=== PATIENT | female | born 1955 | race Caucasian/White ===

== ENCOUNTER → 2016-08-31 16:56 | Outpatient (CLI) | payer OTHER ==
[2011-08-29 08:10] VITALS: BMI 31.9
== END | disposition home or self-care (01) ==
LOC: D.MAMMO 09:45
DX: Z12.31 Encounter for screening mammogram for malignant neoplasm of breast (principal)

== ENCOUNTER → 2016-10-04 17:06 | Outpatient (CLI) | payer OTHER ==
[2011-08-29 08:10] VITALS: BMI 31.9
== END | disposition home or self-care (01) ==
LOC: D.MAMMO 09:30
DX: R92.8 Other abnormal and inconclusive findings on diagnostic imaging of breast (principal)

== ENCOUNTER → 2017-10-31 23:47 | Outpatient (CLI) | payer MEDICARE ==
[2011-08-29 08:10] VITALS: BMI 31.9
== END | disposition home or self-care (01) ==
LOC: D.MAMMO 11:30
DX: N64.4 Mastodynia (principal)